=== PATIENT | female | born 1980 | race Native Hawaiian/Other Pacific Islander ===

== ENCOUNTER 2019-03-31 13:46 | Emergency (ER) | payer SELFPAY ==
--- NOTE | 2019-03-31 13:53 | Emergency Department Report ---
Blank Doc - Documentation Documentation: 39-year-old female that presents with vaginal bleeding. 12 weeks . D enies any pelvic pain. This initial assessment/diagnostic orders/clinical plan/treatment(s) is/are subject to change based on patient's health status, clinical progression and re- assessment by fellow clinical providers in the ED. Further treatment and workup at subsequent clinical providers discretion. Patient/guardians urged not to elope from the ED as their condition may be serious if not clinically assessed and managed. Initial orders include: 1- Patient sent to [facility] for further evaluation and treatment 2- UA 3- labs
--- NOTE | 2019-03-31 14:32 | Emergency Department Report ---
ED HPI - General Chief complaint: Vaginal Bleeding Stated complaint: ABD PAIN/3 MONTHS PERG Time Seen by Provider: 03/31/19 13:52 Source: patient Mode of arrival: Ambulatory Limitations: No Limitations - History of Present Illness Initial comments: 39-year-old female, , currently 12 weeks presents to ED with light vaginal bleeding onset this morning. Patient denies abdominal pain, only reports mild lower back pain. Patient was seen by [facility] earlier today, had an US there but states no heartbeat was detected and was instructed to come to the ER for a repeat ultrasound. MD Complaint: vaginal bleeding -: This morning Severity: mild Quality: aching Consistency: intermittent Improves with: none Worsens with: none Associated symptoms: vaginal bleeding. denies: abdominal pain Vaginal bleeding: light :: Yes Number of weeks : 12 Pre- care: followed by OB ([facility]) - Related Data Previous Rx's Medication Instructions Recorded Last Taken Type Pnv95/Ferrous Fumarate/FA 1 each PO QDAY #30 tablet 08/21/14 03/15/15 12:00 Rx [ Multivitamins Tablet] 1 oxyCODONE /ACETAMINOPHEN [Percocet 1 tab PO Q4HR #30 tablet 04/05/15 Unknown Rx 5/325 mg] Ferrous Sulfate [Feosol 325 MG tab] 325 mg PO BID #60 tablet 04/07/15 Unknown Rx DOXYCYCLINE Hyclate [Vibramycin 100 mg PO Q12HR #14 capsule 04/01/19 Unknown Rx CAP] Ibuprofen [Motrin 800 MG tab] 800 mg PO TID PRN #30 tablet 04/01/19 Unknown Rx Methylergonovine [Methergine] 0.2 mg PO Q8HR #6 tablet 04/01/19 Unknown Rx Allergies Allergy/AdvReac Type Severity Reaction Status Date / Time No Known Allergies Allergy Verified 03/16/15 15:10 ED Review of Systems ROS: Stated complaint: ABD PAIN/3 MONTHS PERG Other details as noted in HPI Comment: All other systems reviewed and negative Gastrointestinal: denies: abdominal pain Genitourinary: other (reports vag bleeding) ED Past Medical Hx - Past Medical History Previous Medical History?: Yes Hx Hypertension: No Hx Congestive Heart Failure: No Hx Diabetes: Yes Hx Deep Vein Thrombosis: No Hx Renal Disease: No Hx Sickle Cell Disease: No Hx Seizures: No Hx Asthma: No Hx COPD: No Hx HIV: No - Surgical History Past Surgical History?: Yes Additional Surgical History: - Social History Smoking Status: Never Smoker Substance Use Type: None - Medications Home Medications: Home Medications Medication Instructions Recorded Confirmed Last Taken Type Pnv95/Ferrous Fumarate/FA 1 each PO QDAY #30 tablet 08/21/14 04/08/15 03/15/15 12:00 Rx [ Multivitamins Tablet] 1 oxyCODONE /ACETAMINOPHEN [Percocet 1 tab PO Q4HR #30 tablet 04/05/15 Unknown Rx 5/325 mg] Ferrous Sulfate [Feosol 325 MG tab] 325 mg PO BID #60 tablet 04/07/15 Unknown Rx DOXYCYCLINE Hyclate [Vibramycin 100 mg PO Q12HR #14 capsule 04/01/19 Unknown Rx CAP] Ibuprofen [Motrin 800 MG tab] 800 mg PO TID PRN #30 tablet 04/01/19 Unknown Rx Methylergonovine [Methergine] 0.2 mg PO Q8HR #6 tablet 04/01/19 Unknown Rx ED Physical Exam - General Limitations: No Limitations General appearance: alert, in no apparent distress - Head Head exam: Present: atraumatic, normocephalic - Eye Eye exam: Present: normal appearance - ENT ENT exam: Present: mucous membranes moist - Neck Neck exam: Present: normal inspection - Respiratory Respiratory exam: Present: normal lung sounds bilaterally. Absent: respiratory distress - Cardiovascular Cardiovascular Exam: Present: normal rhythm, tachycardia - GI/Abdominal GI/Abdominal exam: Present: soft. Absent: distended, tenderness - Extremities Exam Extremities exam: Present: normal inspection - Neurological Exam Neurological exam: Present: alert, oriented X3 - Psychiatric Psychiatric exam: Present: normal affect, normal mood - Skin Skin exam: Present: warm, dry, intact, normal color ED Course Vital Signs 03/31/19 03/31/19 13:52 18:11 Temperature 98.1 F Pulse Rate 109 H 100 H Respiratory 18 16 Rate Blood Pressure 109/65 Blood Pressure 124/75 [Left] O2 Sat by Pulse 100 100 Oximetry - Consultations Consultation #1: 03/31/19 18:22 Spoke w/ Dr Yanes, salesperson stereo equipment for [facility]. States pt is to f/u in office for further management of demise ED Medical Decision Making - Lab Data Result diagrams: 03/31/19 14:37 - Radiology Data Radiology results: report reviewed, image reviewed - Medical Decision Making 39-year-old female with demise at 12 weeks gestation. Patient only reported slight vaginal bleeding, no abdominal cramping. Vital signs are stable. I spoke with Dr. Yanes, OB salesperson stereo equipment for [facility]. States patient is to follow-up in clinic. Patient given return precautions. - Differential Diagnosis threatened AB, demise, ectopic preg Critical care attestation.: If time is entered above; I have spent that time in minutes in the direct care of this critically ill patient, excluding procedure time. ED Disposition Clinical Impression: Missed Disposition: DC-01 TO HOME OR SELFCARE Is pt being admited?: No Condition: Stable Instructions: Spontaneous Miscarriage (ED) Referrals: [facility] [Provider Group] - [facility] [Primary Care Provider] - [facility] Time of Disposition: 18:27
[2019-03-31 14:51] LABS: Bacteria,Urine 1+ /HPF (Negative); Bilirubin,Urine NEG (Negative); Blood,Urine LG (Negative); Color,Urine Yellow (Yellow); Mucus,Urine 2+ /HPF; Protein,Urine <15 mg/dL mg/dL (Negative); Urobilinogen,Urine < 2.0 mg/dL (<2.0)
[2019-03-31 15:50] LABS: Basophils % (Auto) 0.4 % (0.0-1.8); Eosinophils # (Auto) 1.5 K/mm3 (0.0-0.4); Eosinophils % (Auto) 13.4 % (0.0-4.3); Hemoglobin 12.9 gm/dl (10.1-14.3); Lymphocytes # (Auto) 1.8 K/mm3 (1.2-5.4); Lymphocytes % (Auto) 16.6 % (13.4-35.0); Mean Corpuscular HGB Conc 34 % (30-34); Mean Corpuscular Volume 91 fl (79-97); Monocytes # (Auto) 0.7 K/mm3 (0.0-0.8); Monocytes % (Auto) 6.6 % (0.0-7.3); Platelet Count 324 K/mm3 (140-440); Red Blood Count 4.19 M/mm3 (3.65-5.03); Red Cell Distribution Width 15.5 % (13.2-15.2)
[2019-03-31] MEDS ORDERED: ACETAMINOPHEN 325 MG TAB PO ONE (17:08)
[2019-03-31] MEDS ORDERED: ACETAMINOPHEN 325 MG TAB ONE (17:08)
--- NOTE | 2019-03-31 17:29 | Ultrasound Report ---
US OB <= 14 weeks fetus, US OB transvaginal INDICATION: vag bleeding. TECHNIQUE: Transvaginal first trimester OB ultrasound. COMPARISON: None available. FINDINGS: There is a pole with crown-rump length of 35 mm corresponding to gestational age of 10 weeks an d 3 days. No heart tones are identified. The left ovary appears normal. The right ovary was not visualized. IMPRESSION: 1. Intrauterine with no identifiable heartbeat. Signer Name: Saúl Travis MD Signed: 03/31/2019 5:25 PM Workstation Name: [id number]
[2019-03-31 18:12] VITALS: BP 124/75
== END 2019-03-31 18:35 | disposition home or self-care (01) ==
LOC: ED 13:46
DX: O02.1 Missed abortion (principal); Z3A.12 12 weeks gestation of pregnancy
CPT/HCPCS: 36415; 76801; 76817; 81001; 84702; 85025; 86900; 86901; 87086

== ENCOUNTER 2019-04-01 18:17 | Day surgery (SDC) | payer SELFPAY ==
[2019-04-01] MEDS ORDERED: SODIUM CHLORIDE 0.9% 1000 ML 1,000 ML ONE (18:29)
[2019-04-01] MEDS ORDERED: SODIUM CHLORIDE 0.9% 1000 ML 1,000 ML IV ONE (18:33)
--- NOTE | 2019-04-01 18:41 | Emergency Department Report ---
ED HPI - General Stated complaint: MISCARRIAGE Time Seen by Provider: 04/01/19 18:32 Source: patient, EMS - History of Present Illness Initial comments: 39 yo F presents to ED with heavy vaginal bleeding. Pt was diagnosed with demise by me on yesterday. Pt only had light vaginal bleeding at that time. Today, pt was at the [facility] office for her follow-up visit. Pt states when the practitioner performed her pelvic exam, she began bleeding profusely. EMS was called. They report there was lots of blood on scene; BP is stable, but HR in the 120s. Pt reports only mild cramping pain. MD Complaint: vaginal bleeding -: minutes(s) (30) Location: pelvis Severity: severe Quality: cramping Consistency: constant Improves with: none Worsens with: none Associated symptoms: vaginal bleeding, abdominal pain Vaginal bleeding: heavy, clots :: Yes Number of weeks : 12 - Related Data Previous Rx's Medication Instructions Recorded Last Taken Type Pnv95/Ferrous Fumarate/FA 1 each PO QDAY #30 tablet 08/21/14 03/15/15 12:00 Rx [ Multivitamins Tablet] 1 oxyCODONE /ACETAMINOPHEN [Percocet 1 tab PO Q4HR #30 tablet 04/05/15 Unknown Rx 5/325 mg] Ferrous Sulfate [Feosol 325 MG tab] 325 mg PO BID #60 tablet 04/07/15 Unknown Rx DOXYCYCLINE Hyclate [Vibramycin 100 mg PO Q12HR #14 capsule 04/01/19 Unknown Rx CAP] Ibuprofen [Motrin 800 MG tab] 800 mg PO TID PRN #30 tablet 04/01/19 Unknown Rx Methylergonovine [Methergine] 0.2 mg PO Q8HR #6 tablet 04/01/19 Unknown Rx Allergies Allergy/AdvReac Type Severity Reaction Status Date / Time No Known Allergies Allergy Verified 03/16/15 15:10 ED Review of Systems ROS: Stated complaint: MISCARRIAGE Other details as noted in HPI Comment: All other systems reviewed and negative Gastrointestinal: abdominal pain Genitourinary: other (reports vag bleeding) ED Past Medical Hx - Past Medical History Hx Hypertension: No Hx Congestive Heart Failure: No Hx Diabetes: Yes Hx Deep Vein Thrombosis: No Hx Renal Disease: No Hx Sickle Cell Disease: No Hx Seizures: No Hx Asthma: No Hx COPD: No Hx HIV: No - Surgical History Additional Surgical History: - Social History Smoking Status: Never Smoker Substance Use Type: None - Medications Home Medications: Home Medications Medication Instructions Recorded Confirmed Last Taken Type Pnv95/Ferrous Fumarate/FA 1 each PO QDAY #30 tablet 08/21/14 04/08/15 03/15/15 12:00 Rx [ Multivitamins Tablet] 1 oxyCODONE /ACETAMINOPHEN [Percocet 1 tab PO Q4HR #30 tablet 04/05/15 Unknown Rx 5/325 mg] Ferrous Sulfate [Feosol 325 MG tab] 325 mg PO BID #60 tablet 04/07/15 Unknown Rx DOXYCYCLINE Hyclate [Vibramycin 100 mg PO Q12HR #14 capsule 04/01/19 Unknown Rx CAP] Ibuprofen [Motrin 800 MG tab] 800 mg PO TID PRN #30 tablet 04/01/19 Unknown Rx Methylergonovine [Methergine] 0.2 mg PO Q8HR #6 tablet 04/01/19 Unknown Rx ED Physical Exam - General General appearance: alert - Head Head exam: Present: atraumatic, normocephalic - Eye Eye exam: Present: normal appearance - ENT ENT exam: Present: mucous membranes moist - Neck Neck exam: Present: normal inspection - Respiratory Respiratory exam: Present: normal lung sounds bilaterally. Absent: respiratory distress - Cardiovascular Cardiovascular Exam: Present: normal rhythm, tachycardia - GI/Abdominal GI/Abdominal exam: Present: soft, tenderness (mild suprapubic tenderness). Absent: distended - External exam: Present: bleeding Speculum exam: Present: other (heavy vaginal bleeding on exam with clots, no tissue present) - Extremities Exam Extremities exam: Present: normal inspection, full ROM - Neurological Exam Neurological exam: Present: alert, oriented X3 - Psychiatric Psychiatric exam: Present: normal affect, normal mood - Skin Skin exam: Present: warm, dry, intact, normal color ED Course Vital Signs 04/01/19 04/01/19 04/01/19 18:36 19:00 19:05 Temperature 97.8 F Pulse Rate 143 H 89 85 Respiratory 19 28 H 21 Rate Blood Pressure 114/65 57/34 Blood Pressure 58/36 [Left] O2 Sat by Pulse 99 100 98 Oximetry 04/01/19 04/01/19 04/01/19 19:10 19:16 19:20 Temperature Pulse Rate 102 H 103 H 101 H Respiratory 13 16 16 Rate Blood Pressure 57/34 76/42 91/44 Blood Pressure [Left] O2 Sat by Pulse 100 100 100 Oximetry 04/01/19 04/01/19 04/01/19 19:26 19:30 19:35 Temperature Pulse Rate 100 H 98 H 102 H Respiratory 16 17 22 Rate Blood Pressure 104/75 114/70 Blood Pressure [Left] O2 Sat by Pulse 100 100 100 Oximetry 04/01/19 04/01/19 04/01/19 19:40 19:45 19:50 Temperature Pulse Rate 97 H 105 H 101 H Respiratory 19 15 14 Rate Blood Pressure 124/77 129/67 129/67 Blood Pressure 124/73 [Left] O2 Sat by Pulse 100 100 100 Oximetry 04/01/19 04/01/19 04/01/19 19:55 20:00 20:55 Temperature 98.2 F Pulse Rate 103 H 102 H 120 H Respiratory 24 19 19 Rate Blood Pressure 116/77 122/72 139/61 Blood Pressure [Left] O2 Sat by Pulse 100 100 98 Oximetry 04/01/19 04/01/19 04/01/19 21:00 21:05 21:10 Temperature Pulse Rate 111 H 105 H 104 H Respiratory 20 20 22 Rate Blood Pressure 108/50 94/53 103/61 Blood Pressure [Left] O2 Sat by Pulse 100 100 100 Oximetry - Reevaluation(s) Reevaluation #1: 04/01/19 19:02 RN informed me that pt's HR dropped from the 120s to the 70s. Pt is diaphoretic, but remains alert and talking. Attempting to obtain a BP. 2 units of O neg blood ordered STAT from blood bank. Dr Calvillo still in ER and is aware of change in condition. - Consultations Consultation #1: 04/01/19 18:47 Spoke w/ Dr Calvillo. States he will come and see the pt. ED Medical Decision Making - Lab Data Result diagrams: 04/01/19 21:07 04/01/19 18:35 - Medical Decision Making 39-year-old female, diagnosed with demise on yesterday, with onset of severe vaginal bleeding today while at the [employer]'s office. Patient initially tachycardic but normal blood pressure. On my exam clots were cleared from her vaginal vault, without any evidence of tissue. Dr. Calvillo, OB, to assess patient. Shortly after being seen by Dr. Calvillo, patient's heart rate dropped and she became diaphoretic. Repeat systolic blood pressure was in the 50s. 2 units of O- blood is rapidly transfused. This did improve patient's vital si gns, heart rate and blood pressure increased following the transfusion. Patient was taken to the OR for a D&C. - Differential Diagnosis incomplete AB, anemia Critical Care Time: Yes Critical care time in (mins) excluding proc time.: 60 Critical care attestation.: If time is entered above; I have spent that time in minutes in the direct care of this critically ill patient, excluding procedure time. Critical Care Time: 60 min ED Disposition Clinical Impression: Excessive vaginal bleeding, Incomplete miscarriage, Hypotension due to blood loss Disposition: TO HOME OR SELFCARE Is pt being admited?: Yes Condition: Good Time of Disposition: 19:03
[2019-04-01 18:50] LABS: Basophils # (Auto) 0.1 K/mm3 (0.0-0.1); Basophils % (Auto) 0.7 % (0.0-1.8); Eosinophils # (Auto) 1.3 K/mm3 (0.0-0.4); Eosinophils % (Auto) 9.6 % (0.0-4.3); Hematocrit 34.7 % (30.3-42.9); Hemoglobin 11.8 gm/dl (10.1-14.3); Lymphocytes # (Auto) 3.1 K/mm3 (1.2-5.4); Lymphocytes % (Auto) 22.3 % (13.4-35.0); Mean Corpuscular HGB Conc 34 % (30-34); Mean Corpuscular Volume 91 fl (79-97); Monocytes # (Auto) 0.9 K/mm3 (0.0-0.8); Monocytes % (Auto) 6.8 % (0.0-7.3); Platelet Count 391 K/mm3 (140-440); Red Blood Count 3.82 M/mm3 (3.65-5.03); Red Cell Distribution Width 15.5 % (13.2-15.2)
--- NOTE | 2019-04-01 19:03 | Short Stay Summary ---
Short Stay Documentation Date of service: 04/01/19 Narrative H&P: Pt is a 39 yo HF presents to ED with heavy vaginal bleeding. Pt was diagnosed with demise yesterday, and only had light vaginal bleeding at that time. Today, she was at the [facility] office for her follow-up visit when the practitioner performed her pelvic exam, she began bleeding profusely. EMS was called. They report there was lots of blood on scene; BP is stable, but HR in the 120s. Pt reports only mild cramping pain. We will proceed with a D&C. - History Principal diagnosis: Incomplete H&P: obtained from office Past Medical History: diabetes Past Surgical History: Social history: no significant social history, - Allergies and Medications Current Medications: Allergies No Known Allergies Allergy (Verified 03/16/15 15:10) Home Medications Medication Instructions Recorded Confirmed Last Taken Type Pnv95/Ferrous Fumarate/FA 1 each PO QDAY #30 tablet 08/21/14 04/08/15 03/15/15 12:00 Rx [ Multivitamins Tablet] 1 Ibuprofen [Motrin 800 MG tab] 800 mg PO TID PRN #30 tablet 04/05/15 Unknown Rx oxyCODONE /ACETAMINOPHEN [Percocet 1 tab PO Q4HR #30 tablet 04/05/15 Unknown Rx 5/325 mg] Ferrous Sulfate [Feosol 325 MG tab] 325 mg PO BID #60 tablet 04/07/15 Unknown Rx Active Medications Sodium Chloride (Nacl 0.9% 1000 Ml) 1,000 mls @ 999 mls/hr IV BOLUS ONE Stop: 04/01/19 19:33 - Physical exam General appearance: severe distress Integumentary: no rash HEENT: Atraumatic Lungs: Clear to auscultation Breasts: deferred Heart: Regular rate Gastrointestinal: normal Female Genitourinary: deferred Rectal Exam: deferred Extremities: no ischemia Neurological: Normal speech - Brief post op/procedure progress note Date of procedure: 04/01/19 Pre-op diagnosis: Incomplete Post-op diagnosis: same Procedure: Dilatation and Curettage Anesthesia: GETA Findings: A 12- 14 weeks size uterus with large amounts of POC at the cervical os. Surgeon: FARTUN HILL Estimated blood loss: 50-100ml Pathology: list (POC) Specimen disposition: to lab Condition: stable - Hospital course Hospital course: Unremarkable. - Disposition Condition at discharge: Good Disposition: DC-01 TO HOME OR SELFCARE - Discharge Diagnoses (1) Incomplete miscarriage Status: Resolved Short Stay Discharge Plan Activity: no restrictions Diet: regular Additional Instructions: NOTHING PER VAGINA, NO SEX, NO DOUCHE, NO TAMPOONS. NO BATH. MAY SHOWER AND WASH HAIR. USE SANITARY PAD. CALL FOR F/U APPT. Follow up with: DISHA FATIMA MD [Primary Care Provider] - 7 Days ISAURA ROSA MD [Staff Physician] - 7 Days Forms: Outpatient Surgery DC Inst. Prescriptions: Methylergonovine [Methergine] 0.2 mg PO Q8HR #6 tablet Ibuprofen [Motrin 800 MG tab] 800 mg PO TID PRN #30 tablet PRN Reason: Pain DOXYCYCLINE Hyclate [Vibramycin CAP] 100 mg PO Q12HR #14 capsule
[2019-04-01 19:06] LABS: BUN/Creatinine Ratio 20; Blood Urea Nitrogen 12 mg/dL (7-17); Calcium 9.6 mg/dL (8.4-10.2); Hemolysis Index 75
--- NOTE | 2019-04-01 19:18 | Anesthesia Consultation ---
Anesthesia Consult and Med Hx Date of service: 04/01/19 - Airway Anesthetic Teeth Evaluation: Good ROM Head & Neck: Adequate Mental/Hyoid Distance: Inadequate Mallampati Class: Class III Intubation Access Assessment: Possibly Difficult - Pulmonary Exam CTA: Yes - Cardiac Exam Cardiac Exam: RRR (tachycardic) - Pre-Operative Health Status ASA Pre-Surgery Classification: ASA3, Emergency Proposed Anesthetic Plan: General - Pulmonary Hx Smoking: No Hx Respiratory Symptoms: No - Cardiovascular System Hx Hypertension: No (hypotensive in ED 2/2 acute blood loss) Hx Heart Attack/AMI: No Hx Percutaneous Transluminal Coronary Angioplasty (PTCA): No - Central Nervous System CVA: No - Gastrointestinal Hx Gastroesophageal Reflux Disease: No - Endocrine Hx Renal Disease: No Hx Liver Disease: No Hx Insulin Dependent Diabetes: Yes Hx Thyroid Disease: No - Hematic Hx Anemia: Yes (2/2 acute blood loss) - Other Systems Hx Obesity: Yes (BMI 48) - Additional Comments Anesthesia Medical History Comments: No hx anesthetic complications. 10 wk demise now with severe vaginal bleeding. Hypotensive tachycardic, pRBCs infusing.
--- NOTE | 2019-04-01 19:19 | Anesthesia Day of Surgery ---
Anesthesia Day of Surgery - Day of Surgery Patient Examined: Yes Patient H&P Reviewed: Yes Patient is NPO: No (last solids 1500 (full meal): plan RSI)
[2019-04-01] MEDS ORDERED: fentaNYL 100 MCG/2 ML INJ IV PRN (19:55)
[2019-04-01] MEDS ORDERED: SILVER NITRATE APPLICATOR 1 EA TP ONE (19:58)
[2019-04-01] MEDS ORDERED: METHYLERGONOVINE MALEATE 0.2 MG/ML VIAL IM ONE (19:59)
[2019-04-01] MEDS ORDERED: ceFAZolin/Water 2 GM/20 ML 2 GM/20 ML SYRINGE IV NR (20:00)
[2019-04-01] MEDS ORDERED: SUCCINYLCHOLINE CHLORIDE 200 MG/10 ML INJ MDV ONE (20:04)
[2019-04-01] MEDS ORDERED: LIDOCAINE MPF (2%) 20 MG/1 ML VIAL 5 ML ONE (20:04)
[2019-04-01] MEDS ORDERED: fentaNYL 100 MCG/2 ML INJ ONE (20:04)
[2019-04-01] MEDS ORDERED: PROPOFOL 200 MG/20 ML VIAL IV ONE (20:05)
[2019-04-01] MEDS ORDERED: ONDANSETRON 4 MG/2 ML INJ ONE (20:39)
--- NOTE | 2019-04-01 20:52 | Operative Report ---
Operative Report Operative Report: PREOPERATIVE DIAGNOSIS: 1. Incomplete POSTOPERATIVE DIAGNOSIS: Same OPERATIVE PROCEDURE: Dilatation and curettage. SURGEON: Cortes Calvillo MD ANESTHESIA: Gen. MAC ANESTHESIOLOGIST: Dr. Payne ESTIMATED BLOOD LOSS: 50 mL's FINDINGS: A 12 -14 week size uterus with large amounts of products of conception at the cervical os COMPLICATIONS: None COUNTS: Correct x3. PROCEDURE: After the patient was correctly identified as the patient, and after general anesthesia was administered, the patient was prepped and draped in the usual sterile fashion and placed in dorsal lithotomy position. First, the bladder was emptied using a straight catheter. Next, a speculum was placed in the vaginal vault and the anterior lip of the cervix was grasped using a single- tooth tenaculum. There was a large amount of POC at the cervical os, which was removed using Ring forceps and sent to pathology. The uterus was sounded to 12 cm, and a 12mm vacurrette was used to suction blood and products of conception from the endometrial cavity that were sent to pathology. After satisfactory suctioning was performed, the procedure was considered complete. All instruments were removed from the vagina. The patient tolerated the procedure well and was transferred to the recovery room in stable condition.
[2019-04-01] MEDS ORDERED: INSULIN REGULAR, HUMAN 100 UNITS/1 ML SUB-Q ONE (21:09)
[2019-04-01] MEDS ORDERED: INSULIN REGULAR, HUMAN 100 UNITS/1 ML ONE (21:12)
[2019-04-01 21:17] LABS: Hematocrit 36.3 % (30.3-42.9)
--- NOTE | 2019-04-01 21:43 | Post Anesthesia Evaluation ---
- Post Anesthesia Evaluation Patient Participated: Yes Airway Patent: Yes Stable Respiratory Function: Yes Nausea/Vomiting: No Temp > 96.8F: Yes Pain Manageable: Yes Adequeate Hydration: Yes Anesthesia Complications: No Other Comments: H/H within acceptable range.
[2019-04-01 21:56] VITALS: BP 93/43
[2019-04-02] MEDS ORDERED: SODIUM CHLORIDE 0.9% 500 ML 500 ML IV ONE (08:39)
== END 2019-04-01 21:09 | disposition home or self-care (01) ==
LOC: ED 18:17 → OR 21:08
PROVIDERS: ATTEND Emergency Medicine
DX: O03.4 Incomplete spontaneous abortion without complication (principal); E11.9 Type 2 diabetes mellitus without complications; E66.9 Obesity, unspecified; Z79.899 Other long term (current) drug therapy; Z68.41 Body mass index [BMI] 40.0-44.9, adult; Z98.891 History of uterine scar from previous surgery; Z86.2 Personal history of diseases of the blood and blood-forming organs and certain disorders involving the immune mechanism
CPT/HCPCS: 36415; 59812; 80048; 82962; 84702; 85014; 85018; 85025; 86850; 86900; 86901; 88305; J0330; J0690; J2405; J2704; J3010; J7030; 86920; J1815; J2210

== ENCOUNTER 2019-07-11 14:35 | Emergency (ER) | payer SELFPAY ==
--- NOTE | 2019-07-11 16:27 | Event Note ---
ED Screening Note Date of service: 07/11/19 Time: 16:08 ED Screening Note: 39 y/o female comes in referral for anemia. H/H 6.05/18 from [facility]. No chest pain some NATI. 04/01/19 miscarriage, 05/02/19 Normal mense 06/23 Heavy mense. Fatigue, dizziness feet swelling, Cold. Hx/o diabetes, anemia and cholesterol. This initial assessment/diagnostic orders/clinical plan/treatment(s) is/are subject to change based on patients health status, clinical progression and re- assessment by fellow clinical providers in the ED. Further treatment and workup at subsequent clinical providers discretion. Patient/guardian urged not to elope from the ED as their condition may be serious if not clinically assessed and managed. Initial orders include:
[2019-07-11 17:07] LABS: Basophils # (Auto) 0.1 K/mm3 (0.0-0.1); Eosinophils # (Auto) 1.2 K/mm3 (0.0-0.4); Eosinophils % (Auto) 13.2 % (0.0-4.3); Hematocrit 22.9 % (30.3-42.9); Hemoglobin 7.4 gm/dl (10.1-14.3); Lymphocytes # (Auto) 1.9 K/mm3 (1.2-5.4); Mean Corpuscular HGB Conc 32 % (30-34); Mean Corpuscular Volume 74 fl (79-97); Monocytes # (Auto) 0.6 K/mm3 (0.0-0.8); Monocytes % (Auto) 6.8 % (0.0-7.3); Platelet Count 421 K/mm3 (140-440); Red Blood Count 3.12 M/mm3 (3.65-5.03); Red Cell Distribution Width 18.5 % (13.2-15.2)
[2019-07-11 17:25] LABS: INR 0.91 (0.87-1.13)
[2019-07-11 17:28] LABS: Alanine Aminotransferase 10 units/L (7-56); Albumin 4.6 g/dL (3.9-5); BUN/Creatinine Ratio 18; Blood Urea Nitrogen 9 mg/dL (7-17); Calcium 9.6 mg/dL (8.4-10.2); Hemolysis Index 2
--- NOTE | 2019-07-11 17:48 | Emergency Department Report ---
ED General Adult HPI - General Chief complaint: Weakness Stated complaint: SEVERE ANEMIA Time Seen by Provider: 07/11/19 16:05 Source: patient, family Mode of arrival: Ambulatory Limitations: Language Barrier - History of Present Illness Initial comments: Patient is 39 years old female with no significant past medical history except for chronic anemia secondary to heavy menstrual cycle. Patient sent from her primary care physician for evaluation of anemia patient had a test done stating that she has a hemoglobin of 6.1. Patient is complaining of shortness of breath when she walks for long distance. Patient denied any chest pain or orthopnea. - Related Data Previous Rx's Medication Instructions Recorded Last Taken Type Pnv95/Ferrous Fumarate/FA 1 each PO QDAY #30 tablet 08/21/14 03/15/15 12:00 Rx [ Multivitamins Tablet] 1 oxyCODONE /ACETAMINOPHEN [Percocet 1 tab PO Q4HR #30 tablet 04/05/15 Unknown Rx 5/325 mg] Ferrous Sulfate [Feosol 325 MG tab] 325 mg PO BID #60 tablet 04/07/15 Unknown Rx DOXYCYCLINE Hyclate [Vibramycin 100 mg PO Q12HR #14 capsule 04/01/19 Unknown Rx CAP] Ibuprofen [Motrin 800 MG tab] 800 mg PO TID PRN #30 tablet 04/01/19 Unknown Rx Methylergonovine [Methergine] 0.2 mg PO Q8HR #6 tablet 04/01/19 Unknown Rx Allergies Allergy/AdvReac Type Severity Reaction Status Date / Time No Known Allergies Allergy Verified 03/16/15 15:10 ED Review of Systems ROS: Stated complaint: SEVERE ANEMIA Other details as noted in HPI Comment: All other systems reviewed and negative Constitutional: denies: chills, fever Respiratory: shortness of breath. denies: cough Cardiovascular: denies: chest pain, palpitations Gastrointestinal: denies: abdominal pain, nausea Neurological: denies: headache, weakness, numbness, paresthesias, confusion, abnormal gait ED Past Medical Hx - Past Medical History Previous Medical History?: Yes Hx Hypertension: No Hx Heart Attack/AMI: No Hx Congestive Heart Failure: No Hx Diabetes: Yes Hx Deep Vein Thrombosis: No Hx Liver Disease: No Hx Renal Disease: No Hx Sickle Cell Disease: No Hx Seizures: No Hx Asthma: No Hx COPD: No Hx HIV: No - Surgical History Past Surgical History?: Yes Additional Surgical History: - Social History Smoking Status: Never Smoker Substance Use Type: None - Medications Home Medications: Home Medications Medication Instructions Recorded Confirmed Last Taken Type Pnv95/Ferrous Fumarate/FA 1 each PO QDAY #30 tablet 08/21/14 04/08/15 03/15/15 12:00 Rx [ Multivitamins Tablet] 1 oxyCODONE /ACETAMINOPHEN [Percocet 1 tab PO Q4HR #30 tablet 04/05/15 Unknown Rx 5/325 mg] Ferrous Sulfate [Feosol 325 MG tab] 325 mg PO BID #60 tablet 04/07/15 Unknown Rx DOXYCYCLINE Hyclate [Vibramycin 100 mg PO Q12HR #14 capsule 04/01/19 Unknown Rx CAP] Ibuprofen [Motrin 800 MG tab] 800 mg PO TID PRN #30 tablet 04/01/19 Unknown Rx Methylergonovine [Methergine] 0.2 mg PO Q8HR #6 tablet 04/01/19 Unknown Rx ED Physical Exam - General Limitations: Language Barrier General appearance: alert, in no apparent distress - Head Head exam: Present: atraumatic, normocephalic, normal inspection - Eye Eye exam: Present: normal appearance - ENT ENT exam: Present: normal exam, normal orophraynx, mucous membranes moist - Neck Neck exam: Present: normal inspection, full ROM. Absent: tenderness, meningismus, lymphadenopathy, thyromegaly - Respiratory Respiratory exam: Present: normal lung sounds bilaterally - Cardiovascular Cardiovascular Exam: Present: regular rate, normal rhythm, normal heart sounds - GI/Abdominal GI/Abdominal exam: Present: soft, normal bowel sounds. Absent: distended, tenderness, guarding, rebound, rigid, organomegaly, mass, bruit, pulsatile mass, hernia - Extremities Exam Extremities exam: Present: normal inspection, full ROM, normal capillary refill. Absent: pedal edema, calf tenderness - Back Exam Back exam: Present: normal inspection, full ROM. Absent: CVA tenderness (R), CVA tenderness (L) - Neurological Exam Neurological exam: Present: alert, oriented X3, CN II-XII intact, normal gait, reflexes normal - Psychiatric Psychiatric exam: Present: normal mood - Skin Skin exam: Present: warm, intact, normal color ED Course Vital Signs 07/11/19 14:45 Temperature 98.3 F Pulse Rate 115 H Respiratory 18 Rate Blood Pressure 120/54 O2 Sat by Pulse 98 Oximetry ED Medical Decision Making - Lab Data Result diagrams: 07/11/19 16:51 07/11/19 16:51 - EKG Data -: EKG Interpreted by Me EKG shows normal: sinus rhythm Rate: normal - EKG Data Interpretation: no acute changes - Medical Decision Making Patient is 39 years old female with no significant past medical history except for chronic anemia secondary to heavy menstrual cycle. Patient sent from her primary care physician for evaluation of anemia patient had a test done stating that she has a hemoglobin of 6.1. Patient is complaining of shortness of breath when she walks for long distance. Patient denied any chest pain or orthopnea. Patient also denied any active vaginal bleeding, no hematemesis, hematochezia or melena. No hematuria. Patient resting in the ER comfortably in no acute distress. Labs showed a hemoglobin of 7.4. No active bleeding at this moment. Patient has not required blood transfusion however patient strongly advised to follow-up with her primary care physician for outpatient management and advised to return to the ER if she develop heavy bleeding or more symptoms. Patient given prescription for iron sulfate and Colace to help with constipation. Critical care attestation.: If time is entered above; I have spent that time in minutes in the direct care of this critically ill patient, excluding procedure time. ED Disposition Clinical Impression: Anemia Disposition: DC-01 TO HOME OR SELFCARE Is pt being admited?: No Condition: Stable Instructions: Iron Deficiency Anemia (ED), Iron Rich Diet (ED) Referrals: PRIMARY CARE, [Referring] - 3-5 Days
[2019-07-11 18:25] VITALS: BP 103/60
== END 2019-07-11 18:56 | disposition home or self-care (01) ==
LOC: ED 14:35
DX: D64.89 Other specified anemias (principal); E11.9 Type 2 diabetes mellitus without complications; Z98.890 Other specified postprocedural states; Z79.899 Other long term (current) drug therapy
CPT/HCPCS: 36415; 80053; 83880; 84702; 85025; 85610; 85730; 86850; 86900; 86901; 93005; 93010

== ENCOUNTER 2022-01-17 07:49 | Day surgery (SDC) | payer OTHER ==
[2022-01-17 08:55] LABS: Basophils # (Auto) 0.1 K/mm3 (0.0-0.1); Basophils % (Auto) 0.7 % (0.0-1.8); Eosinophils # (Auto) 0.7 K/mm3 (0.0-0.4); Eosinophils % (Auto) 7.4 % (0.0-4.3); Hematocrit 38.1 % (30.3-42.9); Hemoglobin 13.3 gm/dl (10.1-14.3); Lymphocytes # (Auto) 1.9 K/mm3 (1.2-5.4); Lymphocytes % (Auto) 20.4 % (13.4-35.0); Mean Corpuscular HGB Conc 35 % (30-34); Mean Corpuscular Volume 94 fl (79-97); Monocytes # (Auto) 0.8 K/mm3 (0.0-0.8); Monocytes % (Auto) 8.2 % (0.0-7.3); Platelet Count 353 K/mm3 (140-440); Red Blood Count 4.07 M/mm3 (3.65-5.03); Red Cell Distribution Width 14.2 % (13.2-15.2)
[2022-01-17] MEDS ORDERED: ASPIRIN EC 325 MG TAB PO NR (09:00)
[2022-01-17 09:06] LABS: INR 0.85 (0.87-1.13)
[2022-01-17] MEDS ORDERED: HEPARIN/NS 5000 UNIT/500ML 1,000 ML IR ONE (09:06)
[2022-01-17] MEDS ORDERED: NITROGLYCERIN SYRINGE 3 ML ONE (09:07)
[2022-01-17 09:08] LABS: Blood Urea Nitrogen 8 mg/dL (7-17); Calcium 9.6 mg/dL (8.4-10.2); Hemolysis Index 12
[2022-01-17 09:16] LABS: BUN/Creatinine Ratio 16
[2022-01-17] MEDS: SODIUM CHLORIDE 0.9% 500 ML 500 ML IV SCH ×2 (09:24→10:42)
[2022-01-17] MEDS: fentaNYL 100 MCG/2 ML INJ ONE ×3 (10:40→11:10)
[2022-01-17] MEDS: MIDAZOLAM 2 MG/2 ML INJ ONE ×2 (10:41→11:00)
[2022-01-17] MEDS: HEPARIN 10,000 UNITS/10 ML VIAL ONE ×2 (10:41→11:03)
[2022-01-17] MEDS: LIDOCAINE (2%) 20 MG/1 ML VIAL 50 ML MDV INFILTRATI ONE ×3 (10:41→11:10)
[2022-01-17] MEDS: VERAPAMIL 5 MG/2 ML INJ ONE ×2 (10:41→11:03)
[2022-01-17] MEDS ORDERED: traMADol 50 MG TAB PO PRN (11:25)
[2022-01-17] MEDS ORDERED: SODIUM CHLORIDE 0.9% 1000 ML 1,000 ML IV SCH (11:30)
--- NOTE | 2022-01-17 11:31 | Discharge Summary ---
Short Stay Discharge Plan Activity: advance as tolerated Weight Bearing Status: Partial Weight Bearing Diet: diabetic Wound: keep clean and dry Special Instructions: no heavy lifting (3 days), hold Metformin (48hrs) Follow up with: PRIMARY CARE, [Primary Care Provider] - 7 Days TODD KRAFT MD [Staff Physician] - 7 Days Forms: CardCath PCI D/C Instructions
--- NOTE | 2022-01-17 11:48 | Electrocardiograph Report ---
[facility] Test Date: 2022-01-17 Test Time: 09:37:35 Pat Name: ELEUTERIO BOND Department: Room: Gender: F State Director: DOMI : 1980 Requested By: CRISTIANE DELGADO Order Number: [id number] Reading MD: Alexys Stevens Measurements Intervals [place] Rate: 90 P: 32 [place]: 133 QRS: -2 QRSD: 103 T: -2 QT: 382 QTc: 468 Interpretive Statements Sinus rhythm No previous ECG available for comparison Electronically Signed On 01-17-2022 11:48:03 EDT by Alexys Stevens
[2022-01-17] MEDS ORDERED: INSULIN REGULAR, HUMAN 100 UNITS/1 ML SUB-Q SCH (12:00)
--- NOTE | 2022-01-17 12:16 | Cardiac Catherization Report ---
DATE OF SERVICE: 01/17/2022 CARDIAC CATHETERIZATION REPORT REASON FOR PROCEDURE: Abnormal thallium stress test. PROCEDURES: 1. Left heart catheterization. 2. Selective left and right coronary angiography. 3. Left ventricular angiography. 4. Sedation time start 10:58, end 11:15. DESCRIPTION OF PROCEDURE: The patient was prepped and draped in a sterile fashion after informed consent. We initially obtained access via the right radial artery, and advanced the wire to the right subclavian, but attempts to advance a catheter were unsuccessful due to marked, diffuse radial artery spasm. This was despite administration of routine radial antispasmodic cocktail. We then turned our attention to the right femoral artery, obtained access using the Seldinger technique followed by placement of a 6-[place] sheath. Selective left and right coronary angiography was then performed using a #4 left Paige and #4 right Paige. The right Paige was used for left ventricular angiography. The catheters and the wires were removed, the right femoral arteriotomy was closed using an Angio-Seal device and right radial arteriotomy closed using a TR band. The patient was returned to the postprocedure unit in stable condition. There were no complications. FINDINGS: HEMODYNAMICS: Left ventricular end-diastolic pressure was 22, following coronary angiography. Ascending aortic pressure was 144/67. There was no significant pressure gradient on pullback across the aortic valve. CORONARY ANGIOGRAPHY: Left main coronary artery was angiographically normal. The left anterior descending artery and its diagonal branches were angiographically normal. The circumflex artery and its obtuse marginal branches were angiographically normal. The right coronary artery was dominant and similarly angiographically normal. There was normal left ventricular systolic function with left ventricular ejection fraction 60%. CONCLUSION: 1. Angiographically normal coronary arteries. 2. Normal left ventricular systolic function, ejection fraction 60%. RECOMMENDATIONS: Risk factor modification. TID: [id number] RECEIPT: [id number] SERGEY FELIZ
[2022-01-17 15:02] VITALS: BP 111/61
== END 2022-01-17 07:50 | disposition home or self-care (01) ==
LOC: CATHLABREC 07:49
PROVIDERS: ATTEND Internal Medicine Cardiovascular Disease
DX: R94.39 Abnormal result of other cardiovascular function study (principal); I10 Essential (primary) hypertension; E78.00 Pure hypercholesterolemia, unspecified; E66.9 Obesity, unspecified; E11.9 Type 2 diabetes mellitus without complications; F41.9 Anxiety disorder, unspecified; F32.9 Major depressive disorder, single episode, unspecified; D64.9 Anemia, unspecified; Z79.899 Other long term (current) drug therapy; Z98.890 Other specified postprocedural states; Z98.891 History of uterine scar from previous surgery; Z80.42 Family history of malignant neoplasm of prostate; Z68.41 Body mass index [BMI] 40.0-44.9, adult
CPT/HCPCS: 36415; 80048; 82962; 85025; 85610; 93005; 93458; 99156; C1760; C1894; J1644; J1815; J2250; J3010; J3490; J7040; Q9967